=== PATIENT | female | born 1970 | race Caucasian/White ===

== ENCOUNTER 2016-10-27 04:47 | Emergency (ER) | payer MEDICAID ==
[~2016-10-27] VITALS: Ht 165.1 cm; Wt 63.5 kg
[2016-10-27] MEDS ORDERED: HYDROCODONE/APAP 10-325 MG TABLET PO ONE (05:30)
[2016-10-27] MEDS ORDERED: HYDROCODONE/APAP 10-325 MG TABLET ONE (05:41)
--- NOTE | 2016-10-27 05:50 | NUR ---
Patient discharged to home in stable conditon. Written and verbal after care instructions given. Patient verbalizes understanding of instructions.
== END 2016-10-27 05:51 | disposition home or self-care (01) ==
LOC: ER 04:55
DX: S62.91XA Unspecified fracture of right hand, initial encounter for closed fracture (principal); F19.10 Other psychoactive substance abuse, uncomplicated; X58.XXXA Exposure to other specified factors, initial encounter; Y93.89 Activity, other specified; Y99.8 Other external cause status; Y92.89 Other specified places as the place of occurrence of the external cause
CPT/HCPCS: 29125; 73130; 99284; A4663

== ENCOUNTER 2016-11-25 05:23 | Emergency (ER) | payer MEDICAID ==
[~2016-11-25] VITALS: Ht 165.1 cm; Wt 61.2 kg
[2016-11-25] MEDS: MORPHINE SULFATE 4 MG/1 ML DISP.SYRIN IM ONE (05:46)
[2016-11-25] MEDS: ONDANSETRON ODT 4 MG TAB.RAPDIS SL ONE (05:46)
[2016-11-25] MEDS ORDERED: MORPHINE SULFATE 4 MG/1 ML DISP.SYRIN ONE (05:54)
[2016-11-25] MEDS ORDERED: ONDANSETRON ODT 4 MG TAB.RAPDIS ONE (05:54)
--- NOTE | 2016-11-25 06:14 | NUR ---
dPatient discharged to home in stable conditon. Written and verbal after care instructions given. Patient verbalizes understanding of instructions. Ambulated from ER with stable gait. All belongings with patient. No further complaint of pain noted. Educated to not drive a vehicle at this time, patient driven home by friend Keith in a private vehicle.
[2016-11-25 06:16] VITALS: BP 113/92
== END 2016-11-25 06:16 | disposition home or self-care (01) ==
LOC: ER 05:26
DX: S60.222A Contusion of left hand, initial encounter (principal); F19.10 Other psychoactive substance abuse, uncomplicated; X58.XXXA Exposure to other specified factors, initial encounter; Y93.89 Activity, other specified; Y92.89 Other specified places as the place of occurrence of the external cause; Y99.8 Other external cause status
CPT/HCPCS: 73130; A4663; J2270; Q0162

== ENCOUNTER 2017-09-09 11:37 | Emergency (ER) | payer MEDICAID ==
[~2017-09-09] VITALS: Ht 165.1 cm; Wt 63.5 kg
--- NOTE | 2017-09-09 11:53 | NUR ---
NO DECREASE IN PAIN. CLIENT REPORTS A VISIT TO DENTIST THIS AM AND DID NOT FILL RX. SHE IS VERY ANXIOUS, TEARFUL AND PAINFUL. UPPER LEFT MOUTH IS SWOLLEN, NO BLEEDING. Addendum: 09/09/17 at [address] permission questionaire completed and ready for scanner. The client was sleeping and appears pain free. Addendum: 09/09/17 at 1839 by SATISH [id number] Client ambulated to waiting without dyspnea, pain or impairment. Prescriptions were given to the client for treating the infections. Verbalized understanding and left for home.
[2017-09-09] MEDS ORDERED: MORPHINE SULFATE 4 MG/1 ML DISP.SYRIN IV ONE (12:15)
[2017-09-09] MEDS ORDERED: ONDANSETRON 4 MG/2 ML VIAL IV ONE (12:15)
[2017-09-09] MEDS ORDERED: KETOROLAC TROMETHAMINE 30 MG INJ ONE (12:18)
[2017-09-09] MEDS ORDERED: ONDANSETRON 4 MG/2 ML VIAL ONE (12:19)
[2017-09-09] MEDS ORDERED: MORPHINE SULFATE 4 MG/1 ML DISP.SYRIN ONE (12:19)
[2017-09-09] MEDS ORDERED: KETOROLAC TROMETHAMINE 30 MG INJ IVP ONE (12:30)
[2017-09-09] MEDS ORDERED: CEPH-570 PO (12:54)
[2017-09-09 14:57] LABS: BASOPHILS % (AUTO) 0.4 % (0.0-2.0); EOSINOPHILS # (AUTO) 0.1 K/uL (0.0-0.7); EOSINOPHILS % (AUTO) 0.6 % (0.0-7.0); HEMATOCRIT 38.1 % (31.2-41.9); HEMOGLOBIN 12.4 g/dL (10.9-14.3); LYMPHOCYTES # (AUTO) 1.5 K/uL (20.0-40.0); LYMPHOCYTES % (AUTO) 14.2 % (20.5-51.5); MEAN CORPUSCULAR HEMOGLOBIN 27.3 uug (24.7-32.8); MEAN CORPUSCULAR HGB CONC 33 g/dL (32.3-35.6); MONOCYTES # (AUTO) 0.8 K/uL (2.0-10.0); MONOCYTES % (AUTO) 7.2 % (0.0-11.0); NEUTROPHILS # (AUTO) 8.5 K/uL (1.8-8.9); NEUTROPHILS % (AUTO) 77.6 % (38.5-71.5); PLATELET COUNT (AUTO) 293 K/uL (179-408); RED BLOOD CELL COUNT(AUTO) 4.54 MIL/uL (3.63-4.92); WHITE BLOOD COUNT (AUTO) 10.9 K/uL (3.8-11.8)
[2017-09-09 14:58] LABS: CREATININE 0.8 mg/dL (0.6-1.3); POTASSIUM 4.6 mmol/L (3.5-5.1)
[2017-09-09 15:04] LABS: BILIRUBIN,TOTAL 0.3 mg/dL (0.2-1.0); TOTAL PROTEIN, SERUM 7.8 g/dL (6.4-8.2)
[2017-09-09] MEDS ORDERED: NORMAL SALINE FLUSH 10 ML DISP.SYRIN ONE (16:42)
[2017-09-09] MEDS ORDERED: IV NORMAL SALINE 100 ML ONE (16:42)
[2017-09-09] MEDS ORDERED: IOHEXOL 300MG/ML 100 ML INFUS..BTL ONE (16:42)
[2017-09-09] MEDS ORDERED: IV NORMAL SALINE 1000 ML BAG IV ONE (17:30)
[2017-09-09 18:37] VITALS: BP 130/83
== END 2017-09-09 18:46 | disposition home or self-care (01) ==
LOC: ER 11:42
DX: L03.211 Cellulitis of face (principal); R79.89 Other specified abnormal findings of blood chemistry; F11.10 Opioid abuse, uncomplicated; Z79.2 Long term (current) use of antibiotics
CPT/HCPCS: 36415; 70486; 70487; 85025; A4663; J1885; J2270; J2405; J3490; Q9967

== ENCOUNTER 2017-09-10 17:54 | Emergency (ER) | payer MEDICAID ==
[~2017-09-10 17:54] MED LIST: CEPH-570 PO
== END 2017-09-10 19:00 | disposition left against medical advice (07) ==
LOC: ER 17:54
DX: Z53.21 Procedure and treatment not carried out due to patient leaving prior to being seen by health care provider (principal)

== ENCOUNTER 2017-09-12 14:31 | Inpatient (IN) | payer MEDICAID ==
[~2017-09-12] VITALS: Ht 167.6 cm; Wt 65.8 kg
[2017-09-12] MEDS ORDERED: IV NORMAL SALINE 1000 ML BAG IV ONE (15:45)
[2017-09-12] MEDS ORDERED: CLINDAMYCIN PHOSPHATE IV 600 MG in IV DEXTROSE 5% 100 ML IV ONE (15:45)
[2017-09-12] MEDS ORDERED: DEXAMETHASONE SOD PHOSPHATE 4 MG INJ IV ONE (15:45)
[2017-09-12] MEDS ORDERED: CLINDAMYCIN PHOSPHATE 600 MG/4 ML VIAL ONE (15:52)
[2017-09-12] MEDS ORDERED: DEXAMETHASONE SOD PHOSPHATE 10 MG INJ ONE (15:53)
[2017-09-12 16:15] LABS: BASOPHILS % (AUTO) 0.5 % (0.0-2.0); EOSINOPHILS # (AUTO) 0.2 K/uL (0.0-0.7); EOSINOPHILS % (AUTO) 2.3 % (0.0-7.0); HEMOGLOBIN 14.1 g/dL (10.9-14.3); LYMPHOCYTES # (AUTO) 1.7 K/uL (20.0-40.0); LYMPHOCYTES % (AUTO) 22.8 % (20.5-51.5); MEAN CORPUSCULAR HEMOGLOBIN 27.7 uug (24.7-32.8); MEAN CORPUSCULAR HGB CONC 33 g/dL (32.3-35.6); MEAN CORPUSCULAR VOLUME 84.4 fL (75.5-95.3); MONOCYTES # (AUTO) 0.6 K/uL (2.0-10.0); MONOCYTES % (AUTO) 8.3 % (0.0-11.0); NEUTROPHILS % (AUTO) 66.1 % (38.5-71.5); PLATELET COUNT (AUTO) 311 K/uL (179-408); RED BLOOD CELL COUNT(AUTO) 5.09 MIL/uL (3.63-4.92); WHITE BLOOD COUNT (AUTO) 7.6 K/uL (3.8-11.8)
[2017-09-12 16:16] LABS: CREATININE 1.1 mg/dL (0.6-1.3)
[2017-09-12 16:28] LABS: BILIRUBIN,DIRECT 0.1 mg/dL (0.0-0.2); BILIRUBIN,TOTAL 0.2 mg/dL (0.2-1.0); TOTAL PROTEIN, SERUM 9.3 g/dL (6.4-8.2)
--- NOTE | 2017-09-12 16:43 | NUR ---
DR AVELAR NOTIFIED OF ELEVATED LACTIC ACID
--- NOTE | 2017-09-12 17:21 | NUR ---
Per ER registration staff Mattie[facility] Patient is resting comfortably in bed with eyes closed.
[2017-09-12] MEDS ORDERED: IV NS 1000 ML 1,000 ML IV PRN (17:46)
[2017-09-12] MEDS ORDERED: ONDANSETRON 4 MG/2 ML VIAL IV PRN (18:00)
[2017-09-12] MEDS ORDERED: MAGNESIUM HYDROXIDE 30 ML LIQUID UDC PO PRN (18:00)
[2017-09-12] MEDS ORDERED: HYDROCODONE/APAP 5-325MG TABLET PO PRN (18:00)
[2017-09-12] MEDS ORDERED: ACETAMINOPHEN 325 MG TABLET PO PRN (18:00)
[2017-09-12] MEDS ORDERED: Z GUARD REMEDY PASTE 57 GM TUBE TOP PRN (18:00)
[2017-09-12] MEDS ORDERED: MORPHINE SULFATE 2 MG/1 ML DISP.SYRIN IV PRN (18:00)
[2017-09-12] MEDS: IV NS 1000 ML 1,000 ML IV SCH (18:37)
--- NOTE | 2017-09-12 18:50 | NUR ---
patient was received from the emergency room, made comfortable in bed, report to be given to the night nurse. No request for pain medications, has no allergy
[2017-09-12 18:57] LABS: *BILIRUBIN,URIN NEGATIVE (NEGATIVE); *BLOOD, URINE 2+ (NEGATIVE); *CLARITY,URINE CLEAR (CLEAR); *COLOR,URINE YELLOW (YELLOW); *KETONES,URINE NEGATIVE (NEGATIVE); *PROTEIN,URINE NEGATIVE (NEGATIVE); *UROBILINOGEN,URINE 0.2 E.U./dl (NORMAL); LEUKOCYTE ESTERASE ,URINE NEGATIVE (NEGATIVE); NITRITE, URINE NEGATIVE (NEGATIVE); PH,URINE 7.5 (5.0-8.0); UGLUCOSE NEGATIVE (NEGATIVE)
--- NOTE | 2017-09-12 18:58 | NUR ---
CLINICAL PHARMACY NOTE: VANCOMYCIN DOSING Request for vancomycin dosing on 46 y/o female 5'6" 145lbs for facial cellulitis Temp 98.4F BUN 23 Scr 1.1 WBC 7.6 Start vancomycin 1gm ivpb q18h estimated trough 13.7. Will order trough level prior to 4ht dose. Will continue to monitor
--- NOTE | 2017-09-12 19:00 | NUR ---
NEW ADMIT FROM ER, ADMITTED FOR FACIAL ABSCESS/CELLULITIS. NO C/O PAIN OR DISTRESS AT PRESENT. SAFETY AND COMFORT MEASURES IN PLACE
[2017-09-12 19:05] LABS: MUCUS,URINE FEW /LPF (0-FEW); SQUAMOUS EPITHELIAL CELL,UR MODERATE /HPF (NONE SEEN)
[2017-09-12 20:18] VITALS: BP 111/73
[2017-09-12] MEDS: VANCOMYCIN IV 1 G in PREMIXED 0 EACH IV SCH (22:36)
[2017-09-13] MEDS: MORPHINE SULFATE 4 MG/1 ML DISP.SYRIN IV PRN ×3 (01:17→17:53)
[2017-09-13] MEDS: IV NS 1000 ML 1,000 ML IV SCH ×3 (03:15→23:35)
[2017-09-13 04:18] VITALS: BP 119/79
[2017-09-13] MEDS: PANTOPRAZOLE SODIUM 40 MG TABLET.DR PO SCH (06:09)
--- NOTE | 2017-09-13 06:55 | NUR ---
PATIENT SLEPT THROUGH THE NIGHT, PAIN MEDS X2 WERE GIVEN. NO C/O OF PAIN OR ANY DISTRESS AT THIS TIME. ALL NEEDS WERE MET
[2017-09-13 07:55] LABS: BASOPHILS % (AUTO) 0.4 % (0.0-2.0); EOSINOPHILS % (AUTO) 0.2 % (0.0-7.0); HEMATOCRIT 36.1 % (31.2-41.9); HEMOGLOBIN 11.9 g/dL (10.9-14.3); LYMPHOCYTES # (AUTO) 1.9 K/uL (20.0-40.0); LYMPHOCYTES % (AUTO) 31.5 % (20.5-51.5); MEAN CORPUSCULAR HEMOGLOBIN 27.6 uug (24.7-32.8); MEAN CORPUSCULAR HGB CONC 33 g/dL (32.3-35.6); MEAN CORPUSCULAR VOLUME 83.7 fL (75.5-95.3); MONOCYTES # (AUTO) 0.5 K/uL (2.0-10.0); NEUTROPHILS # (AUTO) 3.7 K/uL (1.8-8.9); NEUTROPHILS % (AUTO) 59.9 % (38.5-71.5); PLATELET COUNT (AUTO) 295 K/uL (179-408); RED BLOOD CELL COUNT(AUTO) 4.31 MIL/uL (3.63-4.92); WHITE BLOOD COUNT (AUTO) 6.1 K/uL (3.8-11.8)
--- NOTE | 2017-09-13 08:00 | NUR ---
AWAKE COOPERATE WELL NO PAIN OR SOB LEFT FACE SWELLING LESS PO FLD YOLA WELL RESTING WITH CALL LIGHT IN REACH
[2017-09-13 08:09] LABS: CREATININE 0.9 mg/dL (0.6-1.3); MAGNESIUM 1.8 mg/dL (1.8-2.4); PHOSPHOROUS 3.3 mg/dL (2.5-4.9); POTASSIUM 4.3 mmol/L (3.5-5.1)
[2017-09-13 12:00] VITALS: BP 102/68
[2017-09-13] MEDS: VANCOMYCIN IV 1 G in PREMIXED 0 EACH IV SCH (13:23)
--- NOTE | 2017-09-13 14:28 | NUR ---
Clinical pharmacy note-Vancomycin dosing per pharmacy Subjective: To continue Vancomycin dosing on this patient for facial cellulitis(s/p oral surgery, failed out abx patient) Objective: BUN 17 Scr 0.9 WBC 6.1 Temp 98.2 Assessment/Plan: Since renal function is improved( scr 0.9 vs 1.1), will change dose to Vancomycin 1gram IV every 14 hrs(second dose tomorrow at 0400) and draw trough by 4th dose(not ordered yet) for expected trough around 15. Will monitor daily.
[2017-09-13 16:00] VITALS: BP 95/59
--- NOTE | 2017-09-13 18:00 | NUR ---
STABLE CONDITION NO ACUTE DISTRESS PAIN UNDER CONTROL SAFETY MEASURE PROVIDED CALL LIGHT IN REACH
--- NOTE | 2017-09-13 20:00 | NUR ---
RECEIVED PATIENT ASLEEP IN BED, BUT EASILY AROUSABLE. SHE DENIES PAIN OR ANY DISCOMFORT. SAFETY AND COMFORT MEASURES IN PLACE. NO CONCERNS AT THIS TIME
[2017-09-13 20:18] VITALS: BP 91/50
[2017-09-13 20:30] VITALS: BP 107/61
[2017-09-14] MEDS ORDERED: VANCOMYCIN IV 1 G in PREMIXED 0 EACH IV SCH (04:00)
[2017-09-14 04:18] VITALS: BP 106/62
[2017-09-14] MEDS: MORPHINE SULFATE 4 MG/1 ML DISP.SYRIN IV PRN (06:01)
[2017-09-14] MEDS: PANTOPRAZOLE SODIUM 40 MG TABLET.DR PO SCH (06:01)
--- NOTE | 2017-09-14 06:58 | NUR ---
PATIENT SLEPT WELL THROUGH THE NIGHT, PRN PAIN MEDS GIVEN X1. NO C/O OF PAIN AT PRESENT, NO DISTRESS. VSS STABLE. SAFETY MEASURES IN PLACE, ALL NEEDS MET
--- NOTE | 2017-09-14 07:51 | NUR ---
Received client in bed sleeping on the right side in a semi fowlers position. No apparent s/s of pain, distress, discomfort or SOB. IV hydration running at this time. Bed at lowest position for safety and call light within reach for assistance
[2017-09-14] MEDS: IV NS 1000 ML 1,000 ML IV SCH (09:53)
--- NOTE | 2017-09-14 11:45 | NUR ---
Client left AMA, AMA papers were signed. Client was dressed and ready to go by the time I got to her room. She pulled out her IV line and intact, still attached to the IV hydration. ID band removed. aware and unable to convince the client to stay. Client was guided down to lobby for safety.
== END 2017-09-14 11:40 | disposition left against medical advice (07) | DRG 383 ==
LOC: ER 14:32 → MED 18:44
PROVIDERS: ADMIT Internal Medicine; ATTEND Internal Medicine
DX: L03.211 Cellulitis of face (principal); E87.1 Hypo-osmolality and hyponatremia; K13.0 Diseases of lips; E86.1 Hypovolemia; K05.6 Periodontal disease, unspecified; R79.89 Other specified abnormal findings of blood chemistry
CPT/HCPCS: 36415; 70030-TC; 70480; 71045; 83605; 83735; 84100; 85025; 85730; 87040; 87086; 93005; A4663; J1100; J2270; J3370; J3490; J7030

== ENCOUNTER 2017-09-29 04:36 | Emergency (ER) | payer MEDICAID ==
[~2017-09-29] VITALS: Ht 165.1 cm; Wt 65.8 kg
[2017-09-29] MEDS ORDERED: HYDROCODONE/APAP 5-325MG TABLET ONE (05:02)
[2017-09-29] MEDS: HYDROCODONE/APAP 5-325MG TABLET PO ONE (05:05)
--- NOTE | 2017-09-29 05:06 | NUR ---
Patient discharged to home in stable conditon. Written and verbal after care instructions given. Patient verbalizes understanding of instructions. Ambulated from ER with stable gait. All belongings with patient.
[2017-09-29 05:09] VITALS: BP 131/78
== END 2017-09-29 05:13 | disposition home or self-care (01) ==
LOC: ER 04:36
DX: S29.019A Strain of muscle and tendon of unspecified wall of thorax, initial encounter (principal); F11.10 Opioid abuse, uncomplicated; Z79.2 Long term (current) use of antibiotics; X58.XXXA Exposure to other specified factors, initial encounter; Y93.89 Activity, other specified; Y92.89 Other specified places as the place of occurrence of the external cause; Y99.8 Other external cause status
CPT/HCPCS: A4663

== ENCOUNTER 2018-03-31 04:15 | Emergency (ER) | payer MEDICAID ==
[~2018-03-31] VITALS: Ht 165.1 cm; Wt 65.8 kg
--- NOTE | 2018-03-31 04:25 | NUR ---
To room 2A. Patient AAO. Came in to ER c/o R eye stabbing pain and with blurred vision. Patient states pain started yesterday and took some green colored antibiotics.
--- NOTE | 2018-03-31 04:45 | NUR ---
Seen and evaluated by Dr. Licona.
[2018-03-31] MEDS ORDERED: TETRACAINE HCL 0.5% OPHT DROP 2 ML BOTTLE ONE (05:07)
--- NOTE | 2018-03-31 05:10 | NUR ---
Patient's eye pressures checked by Dr. Licona with [facility]. MD discussed results with patient and further care.
[2018-03-31] MEDS ORDERED: TETRACAINE HCL 0.5% OPHT DROP 2 ML BOTTLE OP ONE (05:15)
--- NOTE | 2018-03-31 05:30 | NUR ---
Patient discharged to home in stable conditon. Written and verbal after care instructions given. Patient verbalizes understanding of instructions.
[2018-03-31 05:40] VITALS: BP 120/78
== END 2018-03-31 05:30 | disposition home or self-care (01) ==
LOC: ER 04:20
DX: H10.89 Other conjunctivitis (principal); F11.10 Opioid abuse, uncomplicated
CPT/HCPCS: A4663

== ENCOUNTER 2019-09-11 00:52 | Emergency (ER) | payer MEDICAID ==
[~2019-09-11] VITALS: Ht 165.1 cm; Wt 61.2 kg
--- NOTE | 2019-09-11 01:16 | NUR ---
Dr. Capone at bedside for MSE.
[2019-09-11] MEDS ORDERED: FLUORESCEIN SODIUM 1 MG STRIP ONE (01:19)
[2019-09-11] MEDS ORDERED: TETRACAINE HCL 0.5% OPHT DROP 2 ML BOTTLE ONE (01:19)
[2019-09-11] MEDS ORDERED: FLUORESCEIN SODIUM 1 MG STRIP OP ONE (01:30)
[2019-09-11] MEDS ORDERED: TETRACAINE HCL 0.5% OPHT DROP 2 ML BOTTLE OP ONE (01:30)
[2019-09-11 01:40] VITALS: BP 124/79
--- NOTE | 2019-09-11 01:40 | NUR ---
Patient discharged to home in stable conditon. Written and verbal after care instructions given. Patient verbalizes understanding of instructions. Pt ambulated out of ER with steady gait, no acute signs of distress, VSS, all belongings taken.
== END 2019-09-11 01:41 | disposition home or self-care (01) ==
LOC: ER 00:55
DX: H10.9 Unspecified conjunctivitis (principal)
CPT/HCPCS: A4663

== ENCOUNTER 2020-01-10 01:35 | Emergency (ER) | payer MEDICAID ==
[~2020-01-10] VITALS: Ht 165.1 cm; Wt 68.0 kg
--- NOTE | 2020-01-10 01:45 | NUR ---
Dr. Waletrs at bedside for MSE.
--- NOTE | 2020-01-10 01:50 | NUR ---
Patient provided urine sample, sent to lab.
--- NOTE | 2020-01-10 01:53 | NUR ---
Pt out of ER for CT.
[2020-01-10] MEDS ORDERED: TDAP DIPH,PERTUSS,TET VAC/PF 0.5 ML DISP.SYRIN IM ONE ×2 (01:57→02:00)
[2020-01-10 02:00] LABS: *URINE HCG, QUAL NEGATIVE (NEGATIVE)
--- NOTE | 2020-01-10 02:05 | NUR ---
Pt back to ER from CT.
[2020-01-10] MEDS ORDERED: NEOMY/BACITRA/POLYMYXIN B OINT UD PACKET TP ONE ×2 (02:30→02:33)
[2020-01-10 02:37] VITALS: BP 131/91
--- NOTE | 2020-01-10 02:37 | NUR ---
Patient discharged to home in stable condition. Written and verbal after care instructions given. Patient verbalizes understanding of instructions. Stressed follow up or return to ER for worsening s/s. Patient ambulated out of ER with steady gait, no acute signs of distress, VSS, all belongings taken.
== END 2020-01-10 02:38 | disposition home or self-care (01) ==
LOC: ER 01:42
DX: S16.1XXA Strain of muscle, fascia and tendon at neck level, initial encounter (principal); S01.81XA Laceration without foreign body of other part of head, initial encounter; S09.90XA Unspecified injury of head, initial encounter; W19.XXXA Unspecified fall, initial encounter; Y92.89 Other specified places as the place of occurrence of the external cause; M50.31 Other cervical disc degeneration, high cervical region; M48.02 Spinal stenosis, cervical region
CPT/HCPCS: 70450; 72125; 84703; 90715; A4663

== ENCOUNTER 2021-02-24 22:39 | Emergency (ER) | payer MEDICAID ==
[~2021-02-24] VITALS: Ht 165.1 cm; Wt 68.0 kg
--- NOTE | 2021-02-24 22:51 | NUR ---
Patient presents to ER with c/o of Rt hand pain and swelling. Pt states she fell on it last night while bowling. Noted swelling, and pt able to move her fingers except her thumb. No acute distress. Awaiting MD jacinto.
[2021-02-24] MEDS ORDERED: OXYC-128 PO (23:35)
--- NOTE | 2021-02-25 00:57 | NUR ---
Per Dr. Koch, pt stable for discharge. DC rx and instructions given and reviewed with patient. Verbalized understanding. Left ER in stable condition.
== END 2021-02-25 01:01 | disposition home or self-care (01) ==
LOC: ER 22:42
DX: S63.91XA Sprain of unspecified part of right wrist and hand, initial encounter (principal); X50.0XXA Overexertion from strenuous movement or load, initial encounter; Y93.54 Activity, bowling; Y92.89 Other specified places as the place of occurrence of the external cause; M19.041 Primary osteoarthritis, right hand
CPT/HCPCS: 73130; A4663

== ENCOUNTER 2021-11-13 15:24 | Emergency (ER) | payer MEDICAID ==
[~2021-11-13] VITALS: Ht 165.1 cm; Wt 68.0 kg
[~2021-11-13 15:24] MED LIST changes: +OXYC-128 PO
[2021-11-13] MEDS ORDERED: diphenhydrAMINE 50 MG/1 ML VIAL IV ONE (16:00)
[2021-11-13] MEDS ORDERED: IV NORMAL SALINE 1000 ML BAG IV ONE (16:00)
[2021-11-13] MEDS ORDERED: PROCHLORPERAZINE EDISYLATE 10 MG/2 ML VIAL IV ONE (16:00)
--- NOTE | 2021-11-13 16:25 | NUR ---
[employer] assumes care: patient is in CT scan department@this time per MD & fire extinguisher charger Andrei
[2021-11-13] MEDS ORDERED: diphenhydrAMINE 50 MG/1 ML VIAL ONE (16:28)
[2021-11-13] MEDS ORDERED: PROCHLORPERAZINE EDISYLATE 10 MG/2 ML VIAL ONE (16:28)
--- NOTE | 2021-11-13 16:29 | NUR ---
CT scan was not done. "CT is down." per medicine tech Yury. Nursing supervisor keymodule assembly notified. notified.
[2021-11-13] MEDS ORDERED: KETOROLAC TROMETHAMINE 15 MG INJ ONE (16:58)
[2021-11-13] MEDS ORDERED: KETOROLAC TROMETHAMINE 15 MG INJ IVP ONE ×2 (17:00→17:15)
--- NOTE | 2021-11-13 17:39 | NUR ---
Patient ambulated to bathroom with brisk steady gait. Patient was instructed to collect her urine for study but after this bathroom visit, the patient said " I spilled the urine." Patient also provided clear transparent fluid in the urine cup. Water? I told patient that we will have to collect another urine specimen when she voids again. MD notified. Comfort and safety measures were maintained. Another 4 extra warm blankets on. Light dimmed.
[2021-11-13] MEDS ORDERED: ACETAMINOPHEN 325 MG TABLET ONE (17:44)
[2021-11-13] MEDS ORDERED: ACETAMINOPHEN 325 MG TABLET PO ONE (17:45)
[2021-11-13 17:53] LABS: CREATININE 0.8 mg/dL (0.6-1.3); POTASSIUM 4.2 mmol/L (3.5-5.1)
--- NOTE | 2021-11-13 18:18 | NUR ---
IV removed. Catheter intact and site benign. Pressure and 4x4 gauze applied to site. No bleeding noted. Patient discharged to home in stable condition with brisk steady gait. Written and verbal after care instructions given. Patient verbalized understanding and compliance of instructions. Stressed follow up with primary doctor or return to ER for worsening s/s. Patient said that her roommate Grady will pick her up and that she will not drive home. Patient will wait in the ER waiting room for her ride.
== END 2021-11-13 18:26 | disposition home or self-care (01) ==
LOC: ER 15:27
DX: R51.9 Headache, unspecified (principal)
CPT/HCPCS: 36415; 80048; 96361; 96374; 96375; 99284; J0780; J1200; J1885; J7040; A4663

== ENCOUNTER 2022-12-03 20:42 | Emergency (ER) | payer MEDICAID ==
[~2022-12-03] VITALS: Ht 165.1 cm; Wt 61.2 kg
--- NOTE | 2022-12-03 22:49 | NUR ---
Patient placed in room 3A. Triaged nurse taking care of patient due to only 2 nurses schedule in the ER. The other nurse has 4 patient assigned.
[2022-12-04] MEDS ORDERED: VANCOMYCIN IV 1,000 MG in IV DEXTROSE 5% 250 ML IV ONE ×2
[2022-12-04] MEDS ORDERED: CEFTRIAXONE 2 G in IV DEXTROSE 5% 100 ML IV ONE ×2
[2022-12-04 00:08] LABS: HEMATOCRIT 38.5 % (31.2-41.9); MEAN CORPUSCULAR HEMOGLOBIN 26.5 uug (24.7-32.8); MEAN CORPUSCULAR VOLUME 81.9 fL (75.5-95.3); PLATELET COUNT (AUTO) 282 K/uL (179-408)
[2022-12-04] MEDS ORDERED: PROPARACAINE 0.5% OPHT DROP 15 ML BOTTLE OP ONE (00:15)
[2022-12-04] MEDS ORDERED: FLUORESCEIN SODIUM 1 MG STRIP OP ONE (00:15)
[2022-12-04 00:18] LABS: CREATININE 0.9 mg/dL (0.6-1.3); POTASSIUM 4.2 mmol/L (3.5-5.1)
[2022-12-04 00:25] LABS: BILIRUBIN,TOTAL 0.2 mg/dL (0.2-1.0); TOTAL PROTEIN, SERUM 7.9 g/dL (6.4-8.2)
[2022-12-04] MEDS ORDERED: CEFTRIAXONE /D5W 50ML IVPB **ER PYXIS IV ONE (00:32)
[2022-12-04] MEDS ORDERED: FLUORESCEIN SODIUM 1 MG STRIP ONE (00:32)
[2022-12-04] MEDS ORDERED: VANCOMYCIN IV 200 ML ONE (00:32)
[2022-12-04] MEDS ORDERED: PROPARACAINE 0.5% OPHT DROP 15 ML BOTTLE ONE (00:33)
[2022-12-04] MEDS ORDERED: IOHEXOL 300MG/ML 100 ML INFUS..BTL ONE (00:58)
[2022-12-04] MEDS ORDERED: SWABABLE VALVE TRANSFER SET EA MC ONE (00:58)
[2022-12-04] MEDS ORDERED: IV NORMAL SALINE 250 ML IV ONE (00:59)
--- NOTE | 2022-12-04 01:06 | NUR ---
Macario hammond in [facility] - 12/04/22 at 0107 by LAURA Patient taken to CT via dario accompanied by tech. Coronel, no signs of distress noted.
--- NOTE | 2022-12-04 01:48 | NUR ---
Patient out of unit for ct scan via gurny with no distress noted
--- NOTE | 2022-12-04 01:56 | NUR ---
Patient back from ct scan with no distress noted
[2022-12-04] MEDS ORDERED: OFLO5DRO3 EACHEYE (03:10)
[2022-12-04] MEDS ORDERED: DOXY100C5 PO (03:11)
--- NOTE | 2022-12-04 03:54 | NUR ---
Patient sleeping on gurny with no distress noted. Waiting for CT scan result.
--- NOTE | 2022-12-04 05:31 | NUR ---
Called [facility] and spoke to Danii who requested facesheet and clinicals to be faxed to .
--- NOTE | 2022-12-04 05:59 | NUR ---
Danii from [facility] called back who states [facility], [facility] and [facility] have no Opthalmologist early childhood education instructor on the weekends and is unable to accept patient at this time.
--- NOTE | 2022-12-04 06:19 | NUR ---
IV removed. Catheter intact and site benign. Pressure and 4x4 gauze applied to site. No bleeding noted.
[2022-12-04 06:33] VITALS: BP 120/78
--- NOTE | 2022-12-04 06:33 | NUR ---
Patient does not wish to proceed with medical care recommended by Dr. Tyron Pacheco ). Patient given information related to possible complications, up to and including , which could occur as a result of leaving the hospital at this time. Patient verbalizes understanding of risks involved due to leaving against medical advice. Patient has signed AMA form.
--- NOTE | 2022-12-04 07:37 | NUR ---
Pt has left AMA and did not take her medication with her. Pt left ER and got on [facility]'s care safely.
== END 2022-12-04 07:40 | disposition left against medical advice (07) ==
LOC: ER 20:42
DX: H57.12 Ocular pain, left eye (principal); G43.909 Migraine, unspecified, not intractable, without status migrainosus; Z79.2 Long term (current) use of antibiotics; Z79.899 Other long term (current) drug therapy; Z20.822 Contact with and (suspected) exposure to COVID-19
CPT/HCPCS: 99285; 36415; 96365; 96366; 87426; 80053; 85025; 85610; 85651; 86140; 96368; J0696 ×2; Q9967; J3370; A4663

== ENCOUNTER 2023-03-03 18:49 | Emergency (ER) | payer MEDICAID ==
[~2023-03-03] VITALS: Ht 165.1 cm; Wt 61.2 kg
[~2023-03-03 18:49] MED LIST changes: +DOXY100C5 PO; +OFLO5DRO3 EACHEYE
[2023-03-03] MEDS ORDERED: HYDROMORPHONE 1 MG/1 ML DISP.SYRIN IM ONE (20:30)
[2023-03-03] MEDS ORDERED: ONDANSETRON ODT 4 MG TAB.RAPDIS SL ONE (20:30)
[2023-03-03] MEDS ORDERED: PENICILLIN G BENZATHINE 2.4 MMU/4 ML DISP.SYRIN IM ONE ×2 (20:30→20:33)
[2023-03-03] MEDS ORDERED: HYDROMORPHONE 1 MG/1 ML DISP.SYRIN ONE (20:32)
[2023-03-03] MEDS ORDERED: ONDANSETRON ODT 4 MG TAB.RAPDIS ONE (20:32)
[2023-03-03] MEDS ORDERED: HYDR-3980 PO (20:34)
[2023-03-03] MEDS ORDERED: ONDA4TAB5 PO (20:34)
[2023-03-03 20:58] VITALS: BP 146/60; O2SAT 97
== END 2023-03-03 20:59 | disposition home or self-care (01) ==
LOC: ER 18:57
DX: R68.84 Jaw pain (principal); K08.89 Other specified disorders of teeth and supporting structures; G43.909 Migraine, unspecified, not intractable, without status migrainosus; Z79.2 Long term (current) use of antibiotics; Z79.899 Other long term (current) drug therapy
CPT/HCPCS: 99284; 96372 ×2; J0561; J1170; A4663; Q0162

== ENCOUNTER 2023-11-12 19:27 | Emergency (ER) | payer MEDICAID, OTHER ==
[~2023-11-12] VITALS: Ht 165.1 cm; Wt 61.2 kg
[~2023-11-12 19:27] MED LIST changes: +HYDR-3980 PO; +ONDA4TAB5 PO
[2023-11-12] MEDS: FLUORESCEIN SODIUM 1 MG STRIP OP ONE (20:00)
[2023-11-12] MEDS: PROPARACAINE 0.5% OPHT DROP 15 ML BOTTLE OP ONE (20:00)
[2023-11-12] MEDS: HYDROCODONE/APAP 5-325MG TABLET PO ONE (20:01)
[2023-11-12] MEDS ORDERED: IV NORMAL SALINE 250 ML IV ONE (20:03)
[2023-11-12] MEDS ORDERED: SWABABLE VALVE TRANSFER SET EA MC ONE (20:03)
[2023-11-12] MEDS ORDERED: IOHEXOL 300MG/ML 100 ML INFUS..BTL ONE (20:03)
[2023-11-12 20:21] LABS: BASOPHILS # (AUTO) 0.2 K/UL (0.0-0.2); BASOPHILS % (AUTO) 3.2 % (0.0-2.0); EOSINOPHILS # (AUTO) 0.2 K/uL (0.0-0.7); HEMATOCRIT 37.6 % (31.2-41.9); HEMOGLOBIN 12.1 g/dL (10.9-14.3); LYMPHOCYTES # (AUTO) 1.4 K/uL (0.8-4.8); LYMPHOCYTES % (AUTO) 24.3 % (20.5-51.5); MEAN CORPUSCULAR HGB CONC 32 g/dL (32.3-35.6); MONOCYTES # (AUTO) 0.3 K/uL (0.1-1.30); MONOCYTES % (AUTO) 4.4 % (0.0-11.0); NEUTROPHILS # (AUTO) 3.8 K/uL (1.8-8.9); NEUTROPHILS % (AUTO) 65.1 % (38.5-71.5); PLATELET COUNT (AUTO) 290 K/uL (179-408); RED BLOOD CELL COUNT(AUTO) 4.83 MIL/uL (3.63-4.92); RED CELL DISTRIBUTION WIDTH 15.7 % (12.3-17.7); WHITE BLOOD COUNT (AUTO) 5.8 K/uL (3.8-11.8)
[2023-11-12 20:36] LABS: DIFFERENTIAL COMMENT 1
[2023-11-12 20:49] LABS: ALBUMIN 3.4 g/dL (3.4-5.0); BILIRUBIN,TOTAL 0.2 mg/dL (0.2-1.0); C-REACTIVE PROTEIN 0.17 mg/dL (0.00-0.30); CALCIUM 8.8 mg/dL (8.5-10.1); CREATININE 0.6 mg/dL (0.6-1.3); POTASSIUM 4.2 mmol/L (3.5-5.1); TOTAL PROTEIN, SERUM 8.2 g/dL (6.4-8.2)
[2023-11-12] MEDS ORDERED: SULF1TAB48 PO (22:36)
[2023-11-12] MEDS ORDERED: AMOX-430 PO (22:36)
[2023-11-12] MEDS ORDERED: OFLO5DRO3 RIGHTEYE (22:36)
[2023-11-12] MEDS: AMOXICILLIN-CLAVUL 875-125MG TABLET PO ONE (22:47)
[2023-11-12] MEDS ORDERED: SULFAMETH/TRIMETH 800/160 MG TABLET ONE (22:50)
[2023-11-12] MEDS: SULFAMETH/TRIMETH 800/160 MG TABLET PO ONE (22:52)
[2023-11-12 22:53] VITALS: BP 118/70; TEMP 98; O2SAT 98
== END 2023-11-12 22:53 | disposition home or self-care (01) ==
LOC: ER 19:31
DX: L03.213 Periorbital cellulitis (principal); H10.9 Unspecified conjunctivitis; H11.421 Conjunctival edema, right eye; H57.11 Ocular pain, right eye; G43.909 Migraine, unspecified, not intractable, without status migrainosus; Z98.890 Other specified postprocedural states; Z79.899 Other long term (current) drug therapy; Z60.2 Problems related to living alone
CPT/HCPCS: 99285; 70481; 80053; 85025; 85610; 86140; 36415; 83605; Q9967; A4606; A4663

== ENCOUNTER 2024-01-05 12:11 | Emergency (ER) | payer OTHER ==
[~2024-01-05] VITALS: Ht 165.1 cm; Wt 61.2 kg
[~2024-01-05 12:11] MED LIST changes: +AMOX-430 PO; +OFLO5DRO3 RIGHTEYE; +SULF1TAB48 PO
[2024-01-05 12:18] VITALS: O2SAT 97
[2024-01-05] MEDS ORDERED: TETRACAINE HCL 0.5% OPHT DROP 2 ML BOTTLE ONE (12:32)
[2024-01-05] MEDS ORDERED: FLUORESCEIN SODIUM 1 MG STRIP ONE (12:32)
[2024-01-05] MEDS: TETRACAINE HCL 0.5% OPHT DROP 2 ML BOTTLE OP ONE (12:39)
[2024-01-05] MEDS: FLUORESCEIN SODIUM 1 MG STRIP OP ONE (12:40)
[2024-01-05] MEDS ORDERED: HYDR-3972 PO (12:43)
[2024-01-05] MEDS ORDERED: GENT5DRO4 LEFTEYE (12:43)
== END 2024-01-05 12:49 | disposition home or self-care (01) ==
LOC: ER 12:11
DX: H20.00 Unspecified acute and subacute iridocyclitis (principal); G43.909 Migraine, unspecified, not intractable, without status migrainosus; Z79.899 Other long term (current) drug therapy; Z79.2 Long term (current) use of antibiotics
CPT/HCPCS: A4606; A4663